=== PATIENT | male | born 1990 | race Caucasian/White ===

== ENCOUNTER 2016-12-21 14:50 | Emergency (ER) | payer MEDICAID, OTHER ==
[~2016-12-21] VITALS: Ht 172.7 cm; Wt 90.7 kg
[2016-12-21 14:58] VITALS: BP_SYST 163
[2016-12-21] MEDS ORDERED: DEXAMETHASONE SOD PHOSPHATE 10 MG/ML VIAL IM ONE (15:30)
[2016-12-21] MEDS ORDERED: KETOROLAC TROMETHAMINE 60 MG/2 ML VIAL IM ONE (15:30)
[2016-12-21] MEDS ORDERED: CLINDAMYCIN HCL 150 MG CAPSULE PO ONE (16:15)
[2016-12-21 16:50] VITALS: BP_SYST 136
== END 2016-12-21 16:50 | disposition home or self-care (01) ==
LOC: SED 14:50
DX: J02.9 Acute pharyngitis, unspecified (principal); R03.0 Elevated blood-pressure reading, without diagnosis of hypertension; Z88.0 Allergy status to penicillin
CPT/HCPCS: 36415; 86403; 96372; 99284; J1100; J1885